=== PATIENT | female | born 1995 | race Caucasian/White ===

== ENCOUNTER 2025-07-18 09:35 | Inpatient (IN) | payer OTHER, SELFPAY ==
[2025-07-18] VITALS (49 sets, daily range): BP systolic 128–144; BP diastolic 70–94; PULSE 66–109; RESP 16; TEMP 36.6; O2SAT 93–100; BMI 32.8
--- OUTSIDE RECORDS SUMMARY | 2025-07-18 12:11 | XMS_ITS | Clinical Summary ---
Author Organization [facility] Address [address] [place] [address] [place] [address] Phone Care Team Providers Care Back Order Clerk Name Role Phone Unavailable Primary Care Provider Unavailabl e Allergies No known active allergies Medications Levonorgestrel (MIRENA) 20 MCG/24HR IU IUD by Intrauterine route. Active ibuprofen (MOTRIN) 800 MG Tablet TAKE 1 TAB BY MOUTH EVERY 8 HOURS NEEDED. 60 Tab 0 6 Active Active Problems Problem Noted Date Diagnosed Date Allergic rhinitis 04/24/2014 Dysmenorrhea 03/28/2012 Immunizations Immunization Administration Dates Next Due DTAP VACCINE 01/24/2002, 8,1997,1997,1996 H1N1 INJECTION 10/01/2009 HIB Vaccine (PRP-T) 05/26/1998,1997,1996,1997 Hepatitis B Vaccine 1997,1997,1996 Inactivated Polio Vaccine 01/24/2002,1997, 1997,1997 MMR Vaccine 01/24/2002,05/26/1998 TDAP Vaccine 06/20/2011 VFC MENINGOCOCCAL IM 07/09/2012 Varicella Vaccine Live 10/08/1998 Family History Medical History Relation Name Comments Alcohol Abuse Father Drug Abuse Father Relation Name Status Comments Father Alive Mother Alive Social History Tobacco Use Types Packs/Day Years Used Date Smoking Tobacco: Never Smokeless Tobacco: Never Tobacco Cessation:Counseling Given: Yes Alcohol Use Standard Drinks/Week Comments Not Asked 0 (1 standard drink = 0.6 oz pur e alcohol) Comments No Sex and Gender Information Value Date Recorded Sex Assigned at Not on file 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 Gender Identity Not on file Sexual Orientation Not on file Last Filed Vital Signs Vital Sign Reading Time Taken Comments Blood Pressure 108/72 01/18/2016 10:10 AM DISTRICT BRANCH MANAGER Pulse 102 01/18/2016 10:10 AM DISTRICT BRANCH MANAGER Temperature 35.8 C (96.4 F) 01/18/2016 10:10 AM DISTRICT BRANCH MANAGER Respiratory Rate 16 01/18/2016 10:10 AM DISTRICT BRANCH MANAGER Oxygen Saturation 98% 01/18/2016 10:10 AM DISTRICT BRANCH MANAGER Inhaled Oxygen Concentration - - Weight 73.9 kg (163 lb) 01/18/2016 10:10 AM DISTRICT BRANCH MANAGER Height 172.7 cm (5' 8) 01/18/2016 10:10 AM DISTRICT BRANCH MANAGER Body Mass Index 24.78 01/18/2016 10:10 AM DISTRICT BRANCH MANAGER Plan of Treatment Health Maintenance Due Date Last Done Comments Hepatitis C Virus (HCV) Screening 1997 DTaP/Tdap/Td Immunization (7 - Td or Tdap) 06/20/2021 06/20/2011, 01/24/2002, 05/26/1998, Additional history exists Human Papillomavirus (HPV) Immunization (1 - 3-dose SCDM series) 2024 SARS-COV-2 Immunization ( season) 2024 Influenza Immunization (#1) 2025 Respiratory Syncytial Virus (RSV) Immunization (Adult) (1 - 1-dose 75+ series) 2072 Hepatitis B Immunization Completed 997, 1997, 1997 Meningococcal Immunization (ACWY) Aged Out 07/09/2012 No longer eligible based on patient's age to complete this topic Pneumococcal Immunization Combined Aged Out No longer eligible based on patient's age to complete this topic Rotavirus Immunization Aged Out No lo nger eligible based on patient's age to complete this topic
--- OUTSIDE RECORDS SUMMARY | 2025-07-18 12:11 | XMS_ITS | Clinical Summary ---
Author Organization [facility] Address [address] [place] [id number] Care Team Providers Care Morning Nanny Name Role Phone None, Provider MD Primary Care Provider Unavaila ble Social History Tobacco Use Types Packs/Day Years Used Date Smoking Tobacco: Never Assessed Estimated Date of Delivery Comme nts Yes 07/27/2025 Based on last me nstrual period of 10/20/2024 Sex and Gender Information Value Date Recorded Sex Assigned at Not on file Legal Sex Female 2:24 PM HELP AID Gender Identity Not on file Sexual Orientation Not on file Plan of Treatment Health Maintenance Due Date Last Done Comments Cervical Cancer Screening Pap Smear (Age 21 to 29) Every 3 Years 1997 Cervical Cancer Screening 1997 Annual Physical 2000 DTaP, Tdap and Td Vaccines (7 - Td or Tdap) 06/20/2021 06/20/2011, 01/24/2002, 05/26/1998, Additional history exists HPV Vaccines (1 - 3-dose SCDM series) 2024 COVID-19 Vaccine ( season) 2024 Hepatitis B Vaccines Completed 1997, 1997, 1997 Meningococcal Vaccine Aged Out 07/09/2012 No bruce adán eligible based on patient's age to complete this topic Hepatitis C Completed 01/08/2025 Meningococcal B Vaccine Aged Out No l onger eligible based on patient's age to complete this topic Pneumococcal Vaccine: Pediatrics (0 to 5 Years) and At-Risk Patients (6 to 49 Years) Aged Out No longer eligible based on patient's age to complete this topic RSV Immunization or 60+ Years (No Doses Required) Completed RSV Immunizations Under 20 Months Aged Out No longer eligible based on patient's age to complete this topic Procedures Procedure Name Priority Date/Time Associated Diagnosis Comments HEPATITIS C ANTIBODY Routine 01/08/2025 from Last 3 Months or Most Recently Relevant to Health Maintenance Results * HEPATITIS C ANTIBODY (01/08/2025) HEPATITIS C AB non-reacti ve us Default History Genericprovider LABORATORY Final Result from Last 3 Months or Most Recently Relevant to Health Maintenance Insurance Care Teams Morning Nanny Relationship Specialty Start Date End Date None, Provider, PCP - General 11/17/21
--- NOTE | 2025-07-18 12:13 | P.HP_ITS ---
H&P: HPI History of Present Illness Date/Time: 07/18/25 12:13 Chief Complaint: Labor at term Narrative: This is a 30-year-old 2 para 0 whose EDC is 07/23/2025, last menstrual period 10/20/2024, presents at term in active labor. She transferred at about 32 weeks gestation but the early visit at her previous OB appears to be consistent with dates. She is negative for group B strep she does have low flu id Review of Systems Review of Systems: All systems reviewed & are unremarkable except as noted in HPI and below Meds Vital Signs Vital Signs - 24 hr 07/18/25 12:10 Pulse Oximetry 98 Exam Const: General: cooperative, healthy appearing and comfortable Nutritional Appearance: average body habitus Orientation/consciousness: oriented to person, oriented to place and oriented to time HENMT: Head: normal to inspection Resp: Effort & Inspection: normal respiratory effort Cardio: Rate: regular rate Rhythm: regular rhythm Heart sounds: S1 normal heart sound present and S2 normal heart sound present GI: Inspection: normal to inspection (Gravid soft uterus) : External Female Exam: normal external appearance Speculum Exam - Vagina: normal appearance of the vagina Speculum Exam - Cervix: normal appearance of the cervix (Cervix 4cm by RN exam. FHT is reassuring) Assessment and Plan Assessment and plan (1) Term : Code(s): Z34.90 - Encounter for supervision of normal , unspecified, unspecified trimester Status: Acute Plan Spontaneous vaginal delivery is expected. She is an epidural candidate
--- NOTE | 2025-07-18 12:21 | PM.OBPNLAB ---
Pain Control Date/time seen: 07/18/25 12:21 Pain control: tolerating well Pelvic Exam Dilation (cm): 6 Effacement (%): 100 station: -1 Amniotic membrane status: Leaking
--- NOTE | 2025-07-18 12:58 | LDADM ---
This patient, Sonya Sanchez, was admitted to Labor/Delivery/Recovery 104 on 07/18/25 at 09:35. Plans for labor, pain management and were discussed with patient. Patient/family oriented to hospital policies and general routines including ID bracelet, bed and alarms, visiting hours, pain management, procedures, bathroom and other care routines, personal items, smoking policy, room service/diet and guest tray routines, infant security routines, and visiting hours. Patient/Family are encouraged to report perceived risks to care and to ask questions if they do not understand what they are told or what they should do. See OBIX for further documentation.
[2025-07-18 13:15] LABS: Hematocrit 41.2 % (37.0-47.0); Hemoglobin 14.3 g/dL (12.0-15.0); Immature Granulocyte Percent A 0.5 % (0-0.5); Lymphocytes Absolute Auto 1.86 K/mm3 (0.9-3.2); Mean Corpuscular HGB Conc 34.7 g/dl (32-36); Mean Corpuscular Hemoglobin 28.6 pg (26-34); Mean Corpuscular Volume 82.4 fl (80-100); Nucleated Red Blood Cells Absolute Auto 0.000 K/mm3 (0.0-0.012); Nucleated Red Blood Cells Perc 0.0 % (0.0-0.2); Platelet Count Result 267 k/mm3 (150-375); Red Blood Count 5.00 M/mm3 (4.2-5.4); White Blood Count 17.7 K/mm3 (4.5-10.0)
[2025-07-18] MEDS: LACTATED RINGERS 500 ML 999 ML IV CONT (14:13)
[2025-07-18 14:20] LABS: HIV 1/2 Ab P24 Ag Result Negative (Negative)
--- NOTE | 2025-07-18 14:20 | PM.OBPRVD ---
OB - Vaginal Delivery Note Procedure Delivery date: 07/18/25 Induction method: None Delivery monitor: External FHT and External Uterine Route of delivery: Episiotomy description: None Laceration Description: None Specimen: No Quantitative Blood Loss (ml): 62 Anesthesia type: None Disposition: Floor Complications: No immediate complications Narrative: Patient was admitted at term in active labor with rupture of membranes was performed 6cm she rapidly progressed to complete pushed delivered head spontaneously in the DONNA position. Anterior posterior shoulder delivered spontaneously. Cord clamped times and cut and passed off the table given Apgars of 9 [id number] 9 [id number]. Cord blood was drawn. Placenta delivered intact spontaneously. Twenty of Pitocin placed IV to help firm years. No tears or lacerations were noted. QBL was 62cc mom and baby doing fine at the time dictation Baby Date of : 07/18/25 Time of : 14:04 Gestational Age by Date: 39 Infant gender: Female Weight (pounds): 6 Weight (ounces): 10 presentation: vertex position: Left Occiput Anterior Placenta delivery description: Spontaneous Cord Vessel Description: 3 Vessels score one minute: 9 score five minutes: 9
--- NOTE | 2025-07-18 14:22 | PM.DS ---
DS: Admitting Diagnosis Discharge Date 07/20/2025 Admitting Diagnosis Term DS: Discharge Diagnosis Discharge Diagnosis (1) Term : Code(s): Z34.90 - Encounter for supervision of normal , unspecified, unspecified trimester Status: Acute DS: Summary Hospital Course Reason for hospitalization: Patient was admitted at 39 weeks gestation active labor on 07/18/2025 and underwent a spontaneous vaginal delivery with no epidural Hospital Course: Patient's hospital course unremarkable. She remained afebrile. She was up, voiding without difficulty, eating regular diet, ambulating, and bonding well with baby. Time Spent with Patient Time attestation: Total time spent providing and/or coordinating discharge services: Exam Const: General: cooperative, healthy appearing and comfortable Nutritional Appearance: average body habitus Orientation/consciousness: oriented to person, oriented to place and oriented to time HENMT: Head: normal to inspection Resp: Effort & Inspection: normal respiratory effort Cardio: Rate: regular rate Rhythm: regular rhythm Heart sounds: S1 normal heart sound present and S2 normal heart sound present GI: Inspection: normal to inspection (Gravid soft uterus) : External Female Exam: normal external appearance Speculum Exam - Vagina: normal appearance of the vagina Speculum Exam - Cervix: normal appearance of the cervix (Cervix 4cm by RN exam. FHT is reassuring) DS: Data Data Completed and Pending Labs on day of discharge: Labs from last 24 hours 07/18/25 12:18 WBC 17.7 H RBC 5.00 Hgb 14.3 Hct 41.2 MCV 82.4 MCH 28.6 MCHC 34.7 RDW 13.3 Plt Count 267 MPV 9.6 Immature Gran % (Auto) 0.5 Neut % (Auto) 85.2 H Lymph % (Auto) 10.5 L [place] % (Auto) 3.5 Eos % (Auto) 0.1 Baso % (Auto) 0.2 Lymph # (Auto) 1.86 [place] # (Auto) 0.6 Eos # (Auto) 0.0 Baso # (Auto) 0.0 Abs Immat Gran (auto) 0.08 H Absolute Neuts (auto) 15.0 H Absolute Nucleated RBC 0.000 Nucleated RBC % 0.0 HIV 1&2 Ab/P24 Ag 4thGn Negative Blood Type Pending Antibody Screen Pending Discharge Plan Discharge Attending physician on discharge: Per Simental Discharging Clinician: Per Simental Patient Disposition: Home Activity: may shower, no straining and pelvic rest Diet: heart healthy Wound Care Instructions: follow printed instructions Patient Instructions: Antibiotic Form Patient Language: Cambodian Stand Alone Forms: General Discharge Information Follow-up/Referrals: Per Simental MD [Physician, DIRECTOR OF CATERING] Discharge Medications: Continued aspirin [Adult Low Dose Aspirin] 81 mg tablet,delayed release (DR/EC) 81 mg PO DAILY PNV [id number] 90 mg iron- 1 mg-200 mg capsule 1 cap PO DAILY Date of admission: 07/18/25 09:35 Primary Care Provider: Francine,Tito Hi Admitting Provider: Per Simental Attending physician on admission: Per Simental Condition: Stable
[2025-07-18] MEDS: OXYTOCIN 30 UNITS/NS 500 ML 30 UNITS/500 ML BAG 125 UNITS IV CONT (14:48)
[2025-07-18 16:07] LABS: Syphilis IgG/IgM Antibody 2.26 S/C; Syphilis IgG/IgM Antibody Reactive (Nonreactive)
--- NOTE | 2025-07-18 18:07 | OBPPTRN ---
1755-Patient transferred to post room #284 via wheelchair. Support person present. Oriented to unit, room, information board, rooming in, admission packet and security measures. Patient verbalizes understanding.
[2025-07-19 04:50] LABS: Hematocrit 37.9 % (37.0-47.0); Hemoglobin 12.5 g/dL (12.0-15.0)
--- NOTE | 2025-07-19 06:33 | P.PNOB_ITS ---
OB - PN: Subj Subjective Date/time seen: 07/19/25 06:33 Patient comments: no complaints and pain well controlled baby status: doing well Narrative: rpr positive. treponemal ab pending OB - PN: Obj Data Labs 07/19/25 04:25 Labs: Laboratory Results - last 24 hr 07/18/25 07/19/25 12:18 04:25 WBC 17.7 H RBC 5.00 Hgb 14.3 12.5 Hct 41.2 37.9 MCV 82.4 MCH 28.6 MCHC 34.7 RDW 13.3 Plt Count 267 MPV 9.6 Immature Gran % (Auto) 0.5 Neut % (Auto) 85.2 H Lymph % (Auto) 10.5 L [place] % (Auto) 3.5 Eos % (Auto) 0.1 Baso % (Auto) 0.2 Lymph # (Auto) 1.86 [place] # (Auto) 0.6 Eos # (Auto) 0.0 Baso # (Auto) 0.0 Abs Immat Gran (auto) 0.08 H Absolute Neuts (auto) 15.0 H Absolute Nucleated RBC 0.000 Nucleated RBC % 0.0 Syphilis IgG/IgM Ab Reactive A HIV 1&2 Ab/P24 Ag 4thGn Negative Blood Type O Positive Antibody Screen Negative OB - PN A/P Assessment and Plan (1) Term : Code(s): Z34.90 - Encounter for supervision of normal , unspecified, unspecified trimester Status: Acute Plan await treponemal abs Time Spent With Patient Time: Total time spent is greater than 50% in coordination of care (as documented) at patient's floor/unit and/or counseling patient: Review of Systems 2 Review of Systems: All systems reviewed & are unremarkable except as noted in HPI and below Exam 2 Const: General: cooperative, healthy appearing and comfortable Nutritional Appearance: average body habitus Orientation/consciousness: oriented to person, oriented to place and oriented to time HENMT: Head: normal to inspection Resp: Effort & Inspection: normal respiratory effort Cardio: Rate: regular rate Rhythm: regular rhythm Heart sounds: S1 normal heart sound present and S2 normal heart sound present GI: Inspection: normal to inspection (Gravid soft uterus) : External Female Exam: normal external appearance Speculum Exam - Vagina: normal appearance of the vagina Speculum Exam - Cervix: normal appearance of the cervix (Cervix 4cm by RN exam. FHT is reassuring)
[2025-07-19 08:57] VITALS: BP 116/74; PULSE 87; RESP 16; TEMP 36.9; O2SAT 98
[2025-07-19 09:00] VITALS: PULSE 87; RESP 16; O2SAT 98
[2025-07-19] MEDS: MULTIVIT/MIN/PREN/FOL AC/IRON TABLET 1 TAB PO (10:07)
[2025-07-19] MEDS: DOCUSATE SODIUM 100 MG CAPSULE PO (10:07)
--- NOTE | 2025-07-19 11:15 | PC.NURSE ---
Primary RN expressed concern that mom was not waking baby to feed this morning. Mom has declined assistance from nursing staff so far. Met with patient and she states that feedings have gone well. Her left nipple is sore and she is feeding on the right side in a modified cross cradle hold at this time. Baby is active and eager and is able to get an optimal latch, but she does not maintain the latch for long. Mom is encouraged to make and hold a 'bite' for baby to facilitate a continuous and deeper latch. She does a few breast compressions but does not try to hold a continuous bite. Mom states that her garment sewer hand gave her some tips. Mom says that baby will get her hands in the way and root toward her fingers and let go of the breast. She has currently had baby at breast for about 30 minutes. Encouraged her to call out for assistance or for any questions or concerns.
[2025-07-19 11:52] VITALS: BP 106/56; PULSE 71; RESP 16; TEMP 36.7; O2SAT 97
[2025-07-19 13:44] LABS: Reference Lab Test Name RPR
[2025-07-19 13:45] LABS: Reference Lab Test Name TREPONMAL AB; Reference Lab Test Result NONREACTIVE
[2025-07-19 13:46] LABS: Reference Lab Test Result NONREACTIVE
[2025-07-19 20:05] VITALS: BP 127/76; PULSE 81; RESP 16; TEMP 36.8; O2SAT 100
--- NOTE | 2025-07-20 07:18 | P.PNOB_ITS ---
OB - PN: Subj Subjective Date/time seen: 07/20/25 07:18 Patient comments: no complaints, pain well controlled and tolerating diet [place] baby status: doing well OB - PN: Obj Data Labs 07/19/25 04:25 Labs: Laboratory Results - last 24 hr 07/18/25 07/18/25 07/18/25 12:18 12:18 12:18 RPR Titer Cancelled Cancelled RPR Cancelled Cancelled Treponema pallidum Ab Cancelled T.pallidum Ab (TP-PA) Cancelled T.pallidum Ab Interpret Cancelled Ref Lab Test Name Rpr Ref Lab Test Result 07/18/25 07/18/25 12:18 12:18 RPR Titer RPR Treponema pallidum Ab T.pallidum Ab (TP-PA) T.pallidum Ab Interpret Ref Lab Test Name Treponmal ab Ref Lab Test Result Nonreactive Nonreactive OB - PN A/P Assessment and Plan (1) Term : Code(s): Z34.90 - Encounter for supervision of normal , unspecified, unspecified trimester Status: Acute Plan Comments: home Time Spent With Patient Time: Total time spent is greater than 50% in coordination of care (as documented) at patient's floor/unit and/or counseling patient: Review of Systems 2 Review of Systems: All systems reviewed & are unremarkable except as noted in HPI and below Exam 2 Const: General: cooperative, healthy appearing and comfortable Nutritional Appearance: average body habitus Orientation/consciousness: oriented to person, oriented to place and oriented to time HENMT: Head: normal to inspection Resp: Effort & Inspection: normal respiratory effort Cardio: Rate: regular rate Rhythm: regular rhythm Heart sounds: S1 normal heart sound present and S2 normal heart sound present GI: Inspection: normal to inspection (Gravid soft uterus) : External Female Exam: normal external appearance Speculum Exam - Vagina: normal appearance of the vagina Speculum Exam - Cervix: normal appearance of the cervix (Cervix 4cm by RN exam. FHT is reassuring)
[2025-07-20 09:00] VITALS: BP 123/87; PULSE 95; RESP 16; TEMP 36.7; O2SAT 98
[2025-07-20] MEDS: DOCUSATE SODIUM 100 MG CAPSULE PO (09:27)
[2025-07-20] MEDS: MULTIVIT/MIN/PREN/FOL AC/IRON TABLET 1 TAB PO (09:27)
--- NOTE | 2025-07-20 10:09 | PC.NURSE ---
Patient was given the opportunity to view the discharge video Mother & Baby Care, The First Two Weeks and to ask questions. Patient declined viewing the video and has been given the mother/baby guide for home reference.
--- NOTE | 2025-07-20 10:26 | PC.NURSE ---
Patient declined the MMR and TDAP at discharge.
== END 2025-07-20 12:15 | disposition home or self-care (01) | DRG 560 ==
LOC: ANHLDR 14:24 → ANHOB2 17:56
PROVIDERS: Admitting Provider Obstetrics & Gynecology; PCP Family Medicine; Visit Provider Obstetrics & Gynecology
DX: O98.12 Syphilis complicating childbirth (principal); Z37.0 Single live birth; Z3A.39 39 weeks gestation of pregnancy; A53.9 Syphilis, unspecified
CPT/HCPCS: 36415; 85014; 85018; 85025; 86593; 86703; 86850; 86900; 86901; A9270; G0432; J2590; J7120